=== PATIENT | female | born 1980 | race Caucasian/White ===

== ENCOUNTER 2023-09-28 16:14 | Emergency (ER) | payer MEDICAID, OTHER ==
[~2023-09-28] VITALS: Ht 152.4 cm; Wt 72.6 kg
[2023-09-28 16:39] VITALS: BP 110/70; PULSE 73; RESP 19; TEMP 98.3; O2SAT 99
[2023-09-28] MEDS: IBUPROFEN 600 MG TAB PO ONE (17:56)
[2023-09-28] MEDS ORDERED: IBUP-2213 PO (18:13)
== END 2023-09-28 18:30 | disposition home or self-care (01) ==
LOC: MED 16:14
DX: S83.91XA Sprain of unspecified site of right knee, initial encounter (principal); Z79.899 Other long term (current) drug therapy; W01.198A Fall on same level from slipping, tripping and stumbling with subsequent striking against other object, initial encounter; Y92.512 Supermarket, store or market as the place of occurrence of the external cause; Y93.89 Activity, other specified; Y99.8 Other external cause status
CPT/HCPCS: 73562; 99283

== ENCOUNTER 2023-10-22 09:53 | Emergency (ER) | payer OTHER ==
[~2023-10-22] VITALS: Ht 152.4 cm; Wt 77.1 kg
[~2023-10-22 09:53] MED LIST: IBUP-2213 PO
[2023-10-22 10:00] VITALS: BP 90/60; PULSE 70; RESP 19; TEMP 97.3; O2SAT 100
[2023-10-22 10:10] VITALS: O2SAT 100
[2023-10-22 10:35] VITALS: BP 111/57; PULSE 67; RESP 18; TEMP 98.1; O2SAT 100
[2023-10-22 12:56] LABS: BASOPHILS # (AUTO) 0.1 K/uL (0.00-0.22); BASOPHILS % (AUTO) 1.1 % (0.0-2.0); EOSINOPHILS # (AUTO) 0.3 K/uL (0-0.4); EOSINOPHILS % (AUTO) 2.7 % (0.0-4.0); HEMATOCRIT 35.6 % (36-48); HEMOGLOBIN 11.9 g/dL (12.0-16.0); LYMPHOCYTES # (AUTO) 1.9 K/uL (2.5-16.5); LYMPHOCYTES % (AUTO) 19.3 % (20.5-51.1); MEAN CORPUSCULAR HEMOGLOBIN 27 pg (27-31); MEAN CORPUSCULAR HGB CONC 33 g/dL (33-37); MEAN CORPUSCULAR VOLUME 81.9 fL (80-94); MONOCYTES # (AUTO) 0.9 K/uL (0.8-1.0); MONOCYTES % (AUTO) 9.3 % (1.7-9.3); NEUTROPHILS # (AUTO) 6.6 K/uL (1.8-7.7); NEUTROPHILS % (AUTO) 67.6 % (42.2-75.2); PLATELET COUNT (AUTO) 324 K/uL (140-450); RED BLOOD CELL COUNT(AUTO) 4.34 MIL/uL (4.20-5.40); RED CELL DISTRIBUTION WIDTH 17.6 % (11.6-13.7); WHITE BLOOD COUNT (AUTO) 9.8 K/uL (4.8-10.8)
[2023-10-22 13:41] LABS: ANION GAP 12.8 (8-16); CALCIUM 8.5 mg/dL (8.5-10.1); CARBON DIOXIDE 27.5 mmol/L (21-32); CREATININE 0.6 mg/dL (0.6-1.3); POTASSIUM 3.3 mmol/L (3.5-5.1)
[2023-10-22 13:44] LABS: ALBUMIN 3.3 g/dL (3.4-5.0); TOTAL BILIRUBIN 0.2 mg/dL (0.0-1.0); TOTAL PROTEIN, SERUM 7.5 g/dL (6.4-8.2)
[2023-10-22] MEDS ORDERED: CEPH-588 PO (13:49)
== END 2023-10-22 14:01 | disposition home or self-care (01) ==
LOC: MED 09:53
DX: S61.210A Laceration without foreign body of right index finger without damage to nail, initial encounter (principal); L03.011 Cellulitis of right finger; E78.00 Pure hypercholesterolemia, unspecified; Z79.899 Other long term (current) drug therapy; W45.8XXA Other foreign body or object entering through skin, initial encounter; Y93.89 Activity, other specified; Y92.89 Other specified places as the place of occurrence of the external cause; Y99.8 Other external cause status
CPT/HCPCS: 36415; 73140; 80048; 80076; 85025; 87040; 90471; 90715; 99284

== ENCOUNTER 2023-10-24 10:18 | Emergency (ER) | payer OTHER ==
[~2023-10-24] VITALS: Ht 152.4 cm; Wt 72.6 kg
[~2023-10-24 10:18] MED LIST changes: +CEPH-588 PO
[2023-10-24 10:24] VITALS: BP 108/55; PULSE 69; RESP 18; TEMP 97.1; O2SAT 99
[2023-10-24] MEDS: CYCLOBENZAPRINE 10 MG TAB PO ONE (11:44)
[2023-10-24] MEDS: KETOROLAC 30 MG/ML VIAL IM ONE (11:45)
[2023-10-24] MEDS: LIDOCAINE 5% 1 EA PATCH TP ONE (11:46)
[2023-10-24] MEDS ORDERED: DICL20GE TP (12:25)
[2023-10-24] MEDS ORDERED: CYCL-711 PO (12:25)
[2023-10-24] MEDS ORDERED: IBUP-2218 PO (12:25)
[2023-10-24 12:32] VITALS: BP 110/60; PULSE 72; RESP 18; TEMP 97.1; O2SAT 99
== END 2023-10-24 12:31 | disposition home or self-care (01) ==
LOC: MED 10:18
DX: M54.32 Sciatica, left side (principal); Z79.899 Other long term (current) drug therapy
CPT/HCPCS: 81025; 96372; 99283; J1885

== ENCOUNTER 2024-05-08 12:24 | Emergency (ER) | payer OTHER ==
[~2024-05-08] VITALS: Ht 157.5 cm; Wt 83.5 kg
[~2024-05-08 12:24] MED LIST changes: +CYCL-711 PO; +DICL20GE TP; +IBUP-2218 PO
[2024-05-08 13:23] VITALS: BP 117/66; PULSE 71; RESP 17; TEMP 97.2; O2SAT 98
[2024-05-08] MEDS ORDERED: PRED50TA2 PO (14:19)
[2024-05-08] MEDS ORDERED: PROM118S5 PO (14:19)
[2024-05-08] MEDS ORDERED: ALBU0.0912 IH (14:19)
[2024-05-08] MEDS: IBUPROFEN 600 MG TAB PO ONE (14:49)
[2024-05-08 15:01] VITALS: BP 121/64; PULSE 70; RESP 14; TEMP 97.9; O2SAT 99
== END 2024-05-08 15:02 | disposition home or self-care (01) ==
LOC: MED 12:24
DX: J20.9 Acute bronchitis, unspecified (principal); Z79.899 Other long term (current) drug therapy
CPT/HCPCS: 71045; 99283